=== PATIENT | male | born 1990 | race Two or more races ===

== ENCOUNTER 2020-04-30 17:44 | Emergency (ER) | payer OTHER ==
[~2020-04-30] VITALS: Ht 157.5 cm; Wt 70.0 kg
[2020-04-30 18:10] VITALS: BP 136/87
[2020-04-30] MEDS ORDERED: ACETAMINOPHEN 325MG TABLET PO STA (18:40)
[2020-04-30] MEDS ORDERED: PENICILLIN G BENZATHINE 1,200,000 UNITS/2ML SYR IM ONE (18:45)
== END 2020-04-30 21:53 | disposition home or self-care (01) ==
LOC: ER 17:44
DX: J02.9 Acute pharyngitis, unspecified (principal); Z20.828 Contact with and (suspected) exposure to other viral communicable diseases
CPT/HCPCS: 71045; 96372; 99284; J0561; U0003; C9803-CS